=== PATIENT | female | born 1955 | race Caucasian/White ===

== ENCOUNTER 2017-03-04 08:43 | Observation (INO) ==
[2017-03-04 09:20] LABS: Basophils % 0.1 %; Eosinophils % 0.1 %; Hematocrit 36.4 % (35.3-44.9); Hemoglobin 12.2 g/dL (11.5-15.4); Immature Granulocytes % 0.9 % (0-4); Lymphocytes # 0.6 K/mcL (0.6-4.6); Lymphocytes % 6.7 %; Mean Corpuscular HGB Conc 33.5 g/dL (31.6-35.5); Mean Corpuscular Hemoglobin 32.1 pg (28.0-33.3); Mean Corpuscular Volume 95.8 fL (83.0-100.0); Mean Platelet Volume 10.4 fL (9.4-12.4); Monocytes # 0.3 K/mcL (0.0-1.3); Monocytes % 3.2 %; Neutrophils # 7.3 K/mcL (1.6-8.9); Platelet Count 152 K/mcL (140-400); Red Cell Distribution Width 14.8 % (11.5-14.5)
[2017-03-04 09:26] LABS: INR 1.1
[2017-03-04 09:28] LABS: Activated Partial Thrombo Time 24.4 Seconds (26.0-36.0)
[2017-03-04 09:38] LABS: Albumin 3.3 g/dL (3.5-5.0); Albumin/Globulin Ratio 0.9 (1.1-2.2); Bilirubin,Total 0.9 mg/dL (0.2-1.2); Calcium 8.7 mg/dL (8.6-10.8); Globulin 3.7 g/dL (2.4-3.5); Potassium 3.9 mEq/L (3.5-4.5)
[2017-03-04 09:48] LABS: Bilirubin,Urine Small (Negative); Blood,Urine Negative (Negative); Clarity,Urine Clear (Clear); Color,Urine Yellow (Yellow); Glucose,Urine (UA) Normal (Normal); Ketones,Urine Negative (Negative); Leukocyte Esterase,Urine Negative (Negative); Nitrite,Urine Negative (Negative); Protein,Urine 30 mg/dL (Neg-Trace); Specific Gravity,Urine >= 1.030 (1.010-1.025); Urobilinogen,Urine Normal (Normal)
[2017-03-04 09:57] LABS: Squamous Epithelial Cell,Urine Many per lpf (None-Few)
[2017-03-04 09:59] LABS: Bacteria,Urine Few per hpf (None-Few); RBC,Urine 0-3 per hpf (0-3)
[2017-03-04 10:02] LABS: Amorphous Sediment,Urine Moderate (Few)
--- NOTE | 2017-03-04 10:09 | Emergency Department Note ---
Disposition Clinical Impression: Confusion, Fever, UTI (urinary tract infection), Hypotension Disposition: Admitted As Inpatient Condition: Fair Time of Disposition: 10:58 ([facility]) Fall HPI - General Chief Complaint: ED Fall Stated Complaint: confusion/fall Time Seen by Provider: 03/04/17 08:50 Source: patient, EMS Mode of arrival: EMS Limitations: altered mental status Nursing Notes Reviewed: Yes Vital Signs Reviewed: Yes - History of Present Illness HPI Narrative: [id number] female with history of aneurysm clipping 2 about 3 years ago presents to the emergency room after having gone to the bathroom ambulating fell struck and hit her knees causing skin tears tells me she is currently being treated for urinary tract infection he states that he cannot understand why she fell he said she was good yesterday until about 4:00, and also and she began getting weak he said she has had 3 doses of the antibiotic he denies that she has had any chest pain chest pressure palpitations any cough hemoptysis or sputum production or any additional complaints patient concurs with history but patient is also a moderate historian Pt Subjective Complaint: fall 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 From: standing Fall Witnessed: yes Place Fall Occurred: home Loss of Consciousness: none Prolonged Down Time?: no Symptoms Prior to Fall: other (unknown) Context: tripped/slipped Location of injury - extremities: Bilateral: knee (left abrasion) Severity: mild Severity scale (1-10): 3 Quality: aching Associated symptoms (after fall): Reports: weakness, other (knee pain) - Related Data Home Medications Medication Instructions Recorded Confirmed Aspirin [Lo-Dose Aspirin EC] 81 mg PO DAILY 08/14/16 03/04/17 amLODIPine [Norvasc] 5 mg PO DAILY 08/14/16 03/04/17 Previous Rx's Medication Instructions Recorded Escitalopram [Lexapro] 10 mg PO DAILY #30 tablet 08/18/16 Sulfamethoxazole/Trimeth DS 1 each PO BID #20 tablet 03/02/17 [Bactrim DS] Allergies Allergy/AdvReac Type Severity Reaction Status Date / Time No Known Allergies Allergy Verified 03/04/17 09:00 All systems ED: reviewed and negative except as stated. Constitutional: Reports: weakness. Denies: fever, chills Eyes: Denies: eye pain, eye discharge ENT ED: Denies: ear pain Cardiovascular: Denies: chest pain, palpitations Respiratory: Denies: cough, dyspnea, wheezes Gastrointestinal: Denies: abdominal pain, nausea, vomiting Genitourinary: Reports: dysuria. 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: no LAW OFFICE RECEPTIONIST history - Social History Smoking Status: Never smoker Alcohol use: Reports: none Drug use: Reports: none Physical Exam - General Limitations: altered mental status (slow to answer at times but at base ine per family) General appearance: alert, in no apparent distress - Head Head exam: atraumatic, normocephalic, normal inspection - Eye Eye exam: Present: normal appearance, PERRL, EOMI - ENT ENT exam: normal exam, normal oropharynx, mucous membranes moist - Neck Neck exam: Present: normal inspection, full ROM, trachea midline - Chest Chest inspection: Present: normal inspection, symmetric chest wall rise - Respiratory Respiratory exam: Present: normal lung sounds bilaterally - Cardiovascular Cardiovascular exam: Present: regular rate, normal rhythm, normal heart sounds - Abdominal Exam Abdominal exam: Present: soft, Non-Tender, normal bowel sounds. Absent: tenderness, distention, guarding, rebound, rigidity, mass, pulsatile mass - Expanded Upper Extremity Exam Shoulder exam: Present: normal inspection, full ROM Arm exam: Present: normal inspection, full ROM Elbow exam: Present: normal inspection, full ROM Forearm/Wrist exam: Present: normal inspection, full ROM Hand exam: Present: normal inspection, full ROM Vascular exam: Normal: capillary refill, radial pulse - Expanded Lower Extremity Exam Hip/Pelvis exam: Present: normal inspection, full ROM Upper leg exam: Present: normal inspection, full ROM Knee exam: Present: normal inspection, full ROM, tenderness, swelling, abrasion (Urgent abrasion on the right knee consistent with mild skin tear small bruising and ecchymosis noted on the left knee soft tissue swelling noted bilaterally about the patellar region) Lower leg exam: Present: normal inspection, full ROM Ankle exam: Present: normal inspection, full ROM Foot/toe exam: Present: normal inspection, full ROM Neurovascular/Tendon exam: Present: normal capillary refill, normal fine/light touch. Absent: motor deficit, sensory deficit, tendon deficit Gait: not tested/not observed - Back Exam Back exam: Present: normal inspection, full ROM. Absent: muscle spasm - Neurological Exam Neurological exam: Present: alert, CN II-XII intact - Psychiatric Psychiatric exam: Present: normal affect, normal mood - Skin Skin exam: Present: warm, dry, intact, normal color Course Course Narrative: Patient was seen and examined patient was immediately taken to radiology CAT scans performed and also laboratory data was done even though the patient just been here the other day repeat labs were done to make sure that there had been no significant change with the potentially even including that of an infection etiology entering into the blood stream which could be a potential for sepsis had a little bit hypotension but did respond well when given fluids which may be the underlying etiology considering the fact that the patient went for a walk for about a mile a day before as result the patient will be admitted for observation transfer to [facility] service and Dr. Sepulveda patient family are agreeable Vital Signs O2 Sat by Pulse Oximetry 91 03/04/17 08:44 Temperature 100.4 F H 03/04/17 10:47 Pulse Rate 84 03/04/17 10:47 Respiratory Rate 18 03/04/17 10:47 Blood Pressure 83/44 03/04/17 10:47 O2 Sat by Pulse Oximetry 96 03/04/17 10:47 Oxygen Delivery Oxygen Delivery Nasal Cannula Fall - MDM Narrative Medical decision making narrative: FaAll hypotension metabolic infection - Differential Diagnosis Likely: syncope - Lab Data Lab results reviewed: Yes I reviewed the patient's lab results. Result diagrams: 03/04/17 09:13 03/04/17 09:13 Lab Results 03/04/17 03/04/17 03/04/17 Range/Units 09:13 09:13 09:13 WBC 8.2 (4.3-11.1) K/mcL RBC 3.80 L (3.82-4.97) M/mcL Hgb 12.2 (11.5-15.4) g/dL Hct 36.4 (35.3-44.9) % MCV 95.8 (83.0-100.0) fL MCH 32.1 (28.0-33.3) pg MCHC 33.5 (31.6-35.5) g/dL RDW 14.8 H (11.5-14.5) % Plt Count 152 (140-400) K/mcL MPV 10.4 (9.4-12.4) fL Immature Gran % 0.9 (0-4) % Seg Neutrophils % 89.0 % Lymphocytes % 6.7 % Monocytes % 3.2 % Eosinophils % 0.1 % Basophils % 0.1 % Neutrophils # 7.3 (1.6-8.9) K/mcL Lymphocytes # 0.6 (0.6-4.6) K/mcL Monocytes # 0.3 (0.0-1.3) K/mcL Eosinophils # 0.0 (0.0-0.6) K/mcL Basophils # 0.0 (0.0-0.2) K/mcL PT 12.0 (9.4-12.1) Seconds INR 1.1 APTT 24.4 L (26.0-36.0) Seconds VBG Lactic Acid (0.5-2.2) mmol/L Sodium 138 (136-145) mEq/L Potassium 3.9 (3.5-4.5) mEq/L Chloride 108 (98-109) mEq/L Carbon Dioxide 20 (19-29) mEq/L BUN 21 H (7-20) mg/dL Creatinine 1.37 H D (0.57-1.11) mg/dL Est GFR ( Amer) 47 L (> 60) Est GFR (Non-Af Amer) 39 L (> 60) BUN/Creatinine Ratio 15 (6-26) Glucose 140 H (70-99) mg/dL Calculated Osmolality 291 (280-300) Calcium 8.7 (8.6-10.8) mg/dL Total Bilirubin 0.9 (0.2-1.2) mg/dL AST 24 (5-34) Units/L ALT 15 (0-55) Units/L Alkaline Phosphatase 44 (38-126) Units/L Serum Total Protein 7.0 (6.0-8.3) g/dL Albumin 3.3 L (3.5-5.0) g/dL Globulin 3.7 H (2.4-3.5) g/dL Albumin/Globulin Ratio 0.9 L (1.1-2.2) Urine Color (Yellow) Urine Clarity (Clear) Urine pH (5.0-8.0) pH Units Ur Specific [place] (1.010-1.025) Urine Protein (Neg-Trace) mg/dL Urine Glucose (UA) (Normal) mg/dL Urine Ketones (Negative) mg/dL Urine Blood (Negative) Urine Nitrite (Negative) Urine Bilirubin (Negative) Urine Urobilinogen (Normal) mg/dL Ur Leukocyte Esterase (Negative) Urine Microscopic RBC (0-3) per hpf Urine Microscopic WBC (0-3) per hpf Ur Squamous Epith Cells (None-Few) per lpf Amorphous Sediment (Few) Urine Bacteria (None-Few) per hpf Ur Culture Indicated? (NO) 03/04/17 03/04/17 Range/Units 09:38 11:20 WBC (4.3-11.1) K/mcL RBC (3.82-4.97) M/mcL Hgb (11.5-15.4) g/dL Hct (35.3-44.9) % MCV (83.0-100.0) fL MCH (28.0-33.3) pg MCHC (31.6-35.5) g/dL RDW (11.5-14.5) % Plt Count (140-400) K/mcL MPV (9.4-12.4) fL Immature Gran % (0-4) % Seg Neutrophils % % Lymphocytes % % Monocytes % % Eosinophils % % Basophils % % Neutrophils # (1.6-8.9) K/mcL Lymphocytes # (0.6-4.6) K/mcL Monocytes # (0.0-1.3) K/mcL Eosinophils # (0.0-0.6) K/mcL Basophils # (0.0-0.2) K/mcL PT (9.4-12.1) Seconds INR APTT (26.0-36.0) Seconds VBG Lactic Acid 1.4 (0.5-2.2) mmol/L Sodium (136-145) mEq/L Potassium (3.5-4.5) mEq/L Chloride (98-109) mEq/L Carbon Dioxide (19-29) mEq/L BUN (7-20) mg/dL Creatinine (0.57-1.11) mg/dL Est GFR ( Amer) (> 60) Est GFR (Non-Af Amer) (> 60) BUN/Creatinine Ratio (6-26) Glucose (70-99) mg/dL Calculated Osmolality (280-300) Calcium (8.6-10.8) mg/dL Total Bilirubin (0.2-1.2) mg/dL AST (5-34) Units/L ALT (0-55) Units/L Alkaline Phosphatase (38-126) Units/L Serum Total Protein (6.0-8.3) g/dL Albumin (3.5-5.0) g/dL Globulin (2.4-3.5) g/dL Albumin/Globulin Ratio (1.1-2.2) Urine Color Yellow (Yellow) Urine Clarity Clear (Clear) Urine pH 6.0 (5.0-8.0) pH Units Ur Specific [place] >= 1.030 H (1.010-1.025) Urine Protein 30 H (Neg-Trace) mg/dL Urine Glucose (UA) Normal (Normal) mg/dL Urine Ketones Negative (Negative) mg/dL Urine Blood Negative (Negative) Urine Nitrite Negative (Negative) Urine Bilirubin Small H (Negative) Urine Urobilinogen Normal (Normal) mg/dL Ur Leukocyte Esterase Negative (Negative) Urine Microscopic RBC 0-3 (0-3) per hpf Urine Microscopic WBC 3-5 H (0-3) per hpf Ur Squamous Epith Cells Many H (None-Few) per lpf Amorphous Sediment Moderate H (Few) Urine Bacteria Few (None-Few) per hpf Ur Culture Indicated? NO (NO) - Radiology Data Radiology results reviewed: Yes I reviewed the patient's radiology results. ITS Impressions Head CT 03/04/17 09:00 IMPRESSION: 1. Stable appearance of the brain without acute intracranial process identified. 2. Sequelae of coil embolization of two intracranial aneurysms. D/ / Jose R Zaragoza MD / Jose R Zaragoza MD Interpreting Provider: Jose R Zaragoza MD Knee X-Ray 03/04/17 09:00 IMPRESSION: No acute abnormalities. Degenerative changes to the knee. D/ / 03/04/2017 10:04:24 Jose Roberto Mary MD / Ester Segura Interpreting Provider: Jose Roberto Mary MD Knee X-Ray 03/04/17 09:00 IMPRESSION: 1. No acute fracture or dislocation of the right knee. 2. Likely subcutaneous contusion about the anterolateral right knee. 3. 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 D/ / Gelacio Barrientos MD / Gelacio Barrientos MD Interpreting Provider: Gelacio Barrientos MD - EKG Data EKG attestation: Yes I reviewed and interpreted this EKG. EKG results narrative: Sinus rhythm rate 83 MA 174 QRS 89 QT 343 excess -6 Critical Care Time Critical Care Time: No
[2017-03-04] MEDS ORDERED: 0.9 % Sodium Chloride 500 ML IVC ONE (10:39)
[2017-03-04] MEDS ORDERED: 0.9 % Sodium Chloride 1,000 ML IVC SCH ×2 (10:45→11:39)
[2017-03-04] MEDS ORDERED: Naloxone 0.4 MG/ML INJ IVP PRN (11:39)
[2017-03-04] MEDS ORDERED: Ondansetron 4 MG/2 ML VIAL IVP PRN (11:39)
--- NOTE | 2017-03-04 15:45 | Electrocardiograph Report ---
[address] [address] Test Date: 2017-03-04 Pat Name: Geri Anthony Department: 9201 Room: [facility] Gender: F Emergency Department Clinician: [id number] : 1955 Requested By: Nadira Lanier Order Number: [id number] Reading MD: Roberth Guerrero MD Measurements Intervals [place] Rate: 83 P: 55 DC: 174 QRS: -6 QRSD: 89 T: 43 QT: 343 QTc: 383 Interpretive Statements SINUS RHYTHM Electronically Signed On 03-04-2017 15:43:42 EDT by Roberth Guerrero MD
--- NOTE | 2017-03-04 17:08 | Internal Med History&Physical ---
Date of Encounter: 03/04/17 Time of Encounter: 16:30 Assessment and Plan (1) UTI (urinary tract infection) Current visit: Yes Status: Acute She was given Rocephin in the emergency room. We will recheck CBC in a.m. Urine culture from March 02 showed no pathogens. Qualifiers: Urinary tract infection type: site unspecified Hematuria presence: without hematuria Qualified Code(s): N39.0 - Urinary tract infection, site not specified (2) Azotemia Current visit: Yes Status: Acute Creatinine was normal at 0.82 on 03/02/2017. We will give IV fluids and recheck labs in a.m. Internal Medicine - H&P: HPI Chief complaint: Weakness Admitted From: Home Plans for Post Hospital Care: Home History of present illness: Ms. Anthony is a 61 year old female who came to emergency room after she became weak in her bathroom and began to fall. She was caught by her and there was no significant injury sustained. He was unable to get her to return standing on her feet. She was brought to the emergency room and found to have mild azotemia and left shift on WBC differential. She was admitted to [facility] floor for ongoing care needs. She has no complaints at present time. She denies any injury and states she wishes to be discharged home. She was seen in emergency room March 02 and given Septra DS for diagnoses of UTI. 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 She has residual impaired short-term memory loss. She had coils placed in 2 additional aneurysms and follows regularly with [facility] physicians to monitor her status. She denies seizures or other neurologic diagnoses. Past Med Surg Social Fam HX - Past Medical History Medical history: hypertension, other (intercranial aneursym with coil clippings x2) Psychiatric history: anxiety, depression - Past Surgical History Surgical History: colectomy, vascular surgery (aneurysm clipping 2012) - Social History Smoking Status: Never smoker Smokeless Tobacco Status: No Alcohol use: none Drug use: none - Family History Mother Hx Family Cardiac Disorders: No Hx Family Respiratory Disorders: Yes Hx Family Cancer: Yes Hx Family GI Disorders: No Hx Family Endocrine Disorder: No Hx Family Neuromuscular Disorders: No Hx Family Neurologic Disorders: No Hx Family HEENT Disorders: No Hx Family Autoimmune Disorders: No Father Hx Family Cardiac Disorders: No Hx Family Respiratory Disorders: No Hx Family Cancer: Yes ("penis") Hx Family GI Disorders: No Hx Family Endocrine Disorder: No Hx Family Neuromuscular Disorders: No Hx Family Neurologic Disorders: No Hx Family HEENT Disorders: No Hx Family Autoimmune Disorders: No Internal Medicine - H&P: Meds Aspirin [Lo-Dose Aspirin EC] 81 mg PO DAILY 08/14/16 [History] amLODIPine [Norvasc] 5 mg PO DAILY 08/14/16 [History] Escitalopram [Lexapro] 10 mg PO DAILY #30 tablet 08/18/16 [Rx] Sulfamethoxazole/Trimeth DS [Bactrim DS] 1 each PO BID #20 tablet 03/02/17 [Rx] Allergies No Known Allergies Allergy (Verified 03/04/17 09:00) All Systems PM: A 10-system review of systems was performed and is negative for pertinent findings except as documented above in the HPI. Review of systems: Review of systems is obtained primarily from patient's who was in the room Gen.: He states her weight is increased approximately 15 pounds in the past year Cardiovascular: There is no history of hypertension ND heart failure angina DVT or pulmonary embolus. She was prescribed amlodipine by the neurosurgeons because of cerebral aneurysms Respiratory: She smoked from age [age] up to 1 pack per day. She does not have documented chronic lung disease and does not use home oxygen GI: She has had cholecystectomy. She denies disorders of her liver or exceeding pancreas : She has had UTI several years ago. She denies chronic kidney disease other kidney or bladder disorders. She has had bladder suspension surgery and hysterectomy. Neurologic: As per history of present illness Endocrine: She has no known diabetes thyroid disease or hyperlipidemia Hematology/oncology: No history of blood disorders cancers or anemia Psychiatric: She has depression but no significant anxiety or other mental health issues Musk skeletal: She has DJD but no known gout or other bone joint or muscle disorders. - Constitutional Vitals: Temp Pulse Resp BP Pulse Ox 98.5 F 70 18 129/65 98 03/04/17 15:09 03/04/17 15:09 03/04/17 15:09 03/04/17 15:09 03/04/17 15:09 Exam: Gen.: She is a well-developed well-nourished female who appears in no severe distress at present time. HEENT: Head is atraumatic and normocephalic except for mild abrasion on her nose from a fall a few days ago. Eyes: EOMI. There is no scleral icterus. Mouth: Mucosa slightly dry Neck: Supple and nontender. There is no thyromegaly or adenopathy noted. She has a well-healed tracheostomy scar at the base of her neck anteriorly Heart: Regular without murmurs gallops or ectopics Lungs: No wheezes or crackles are heard. Abdomen: Soft and nontender. No masses or guarding are noted. Extremities: There is no cyanosis edema or clubbing noted. Dorsalis pedis and posttibial pulses are trace palpable bilaterally. Neurologic: Mental status: She is talkative and a good historian. Cranial nerves: Smile is symmetric. Forehead wrinkles bilaterally. Tongue protrudes midline. EOMI. Motor: There is no pronator drift. She cannot fully pronate the left arm because of pain in her left shoulder. Cerebellar: Finger to nose is intact bilaterally. Skin: Warm and dry Internal Med - H&P Results - Labs CBC & Chem 7: 03/04/17 09:13 03/04/17 09:13
[2017-03-04] MEDS: 0.45 % Sodium Chloride w/KCl 20 MEQ/1,000 ML MLS IVC SCH (18:23)
[2017-03-05] MEDS ORDERED: *HR* LORazepam 2 MG/ML VIAL IVP ONE (02:50)
[2017-03-05] MEDS: 0.45 % Sodium Chloride w/KCl 20 MEQ/1,000 ML MLS IVC SCH (04:57)
[2017-03-05 06:11] LABS: Basophils % 0.2 %; Eosinophils % 0.3 %; Hematocrit 31.3 % (35.3-44.9); Hemoglobin 10.3 g/dL (11.5-15.4); Immature Granulocytes % 0.7 % (0-4); Lymphocytes # 0.8 K/mcL (0.6-4.6); Lymphocytes % 14.1 %; Mean Corpuscular HGB Conc 32.9 g/dL (31.6-35.5); Mean Corpuscular Hemoglobin 32.1 pg (28.0-33.3); Mean Corpuscular Volume 97.5 fL (83.0-100.0); Mean Platelet Volume 10.9 fL (9.4-12.4); Monocytes # 0.2 K/mcL (0.0-1.3); Monocytes % 4.1 %; Neutrophils # 4.8 K/mcL (1.6-8.9); Platelet Count 110 K/mcL (140-400); Red Blood Count 3.21 M/mcL (3.82-4.97); Segmented Neutrophils % 80.6 %
[2017-03-05 06:36] LABS: BUN/Creatinine Ratio 18 (6-26); Blood Urea Nitrogen 17 mg/dL (7-20); Calcium 7.8 mg/dL (8.6-10.8); Carbon Dioxide 21 mEq/L (19-29); Chloride 106 mEq/L (98-109); Glucose 107 mg/dL (70-99); Osmolality,Calculated 282 (280-300); Potassium 3.6 mEq/L (3.5-4.5); Sodium 135 mEq/L (136-145); eGFR For African Americans > 60 (> 60); eGFR For Non-African Americans > 60 (> 60)
[2017-03-05] MEDS ORDERED: amLODIPine 5 MG TABLET PO SCH (09:00)
[2017-03-05] MEDS ORDERED: Aspirin Enteric Coated 81 MG Tablet PO SCH (09:00)
[2017-03-05 09:09] VITALS: BP 109/70
--- NOTE | 2017-03-05 10:16 | Discharge Summary ---
Date of Encounter: 03/05/17 Time of Encounter: 10:00 - Discharge Diagnosis (1) UTI (urinary tract infection) Priority: Primary Status: Resolved Qualifiers: Urinary tract infection type: site unspecified Hematuria presence: without hematuria Qualified Code(s): N39.0 - Urinary tract infection, site not specified (2) Azotemia Priority: Secondary Status: Resolved - Discharge Medications Home Medications: Aspirin [Lo-Dose Aspirin EC] 81 mg PO DAILY 08/14/16 [History] Escitalopram [Lexapro] 10 mg PO DAILY #30 tablet 08/18/16 [Rx] amLODIPine [Norvasc] 5 mg PO HS #0 03/05/17 [Rx] Allergies/Adverse Reactions: Allergies No Known Allergies Allergy (Verified 03/04/17 09:00) Date of admission: 03/04/17 11:32 Primary care physician: Ruslan Walker MD Consults: 03/04/17 17:12 Consult to Auto Glass Worker [CONS] Routine Reason for SW Consult: spouse interested in HH if able - Patient Status Disposition: Home, Self-Care Condition: Fair Functional capacity at discharge: uses cane/walker Overall status at discharge: patient is progressing back to baseline - Discharge Instructions Follow Up With: Ruslan Walker MD [Primary Care Provider] - - Diet and Activity Activity: resume usual activities as tolerated Diet: advance to your usual diet Hospital course: Ms. Anthony is a 61 year old female who came to emergency room after she became weak in her bathroom and began to fall. She was caught by her and there was no significant injury sustained. He was unable to get her to return standing on her feet. She was brought to the emergency room and found to have mild azotemia and left shift on WBC differential. She was admitted to [facility] floor for ongoing care needs. Initial orders were written by the emergency room physician. I saw her on March 04 and performed the history and physical. She had no further syncopal or near syncopal episodes during hospitalization. She was given IV fluids and azotemia resolved with BUN and creatinine being 17 and 0.94 respectively on the day of discharge with estimated GFR greater than 60. WBC remained normal at 5.9 on the day of discharge with 80.6% segs. She felt improved when I saw her on March 05. I note her hemoglobin had decreased to 10.2 with hydration. I will let her PCP follow-up on this. I suggested she take amlodipine at bedtime to avoid daytime orthostatic hypotension symptoms. She had frequent episodes of loose stools during hospitalization. Stool was negative for C. difficile but positive for lactoferrin. I told her and her she might have viral gastroenteritis and her PCP can follow up on this. Urine culture from the emergency room visit March 02 showed no growth. She will discontinue Septra that was prescribed at the ER visit. On March 05 she was stable for discharge home. She will follow with her PCP Dr. Walker within 1 week. - Time Spent with Patient Total time spent providing and/or coordinating discharge services: - Constitutional Vitals: Temp Pulse Resp BP Pulse Ox 98.6 F 86 22 109/70 94 03/05/17 08:48 03/05/17 08:48 03/05/17 08:48 03/05/17 08:48 03/05/17 08:48
== END 2017-03-05 11:28 | disposition home or self-care (01) ==
LOC: EMEROOPIK 08:43 → INPPIK 08:43
PROVIDERS: ADMIT Internal Medicine; ATTEND Internal Medicine

== ENCOUNTER 2021-08-21 09:15 | Observation (INO) ==
[2021-08-21] MEDS ORDERED: Ondansetron 4 MG/2 ML VIAL IVP ONE (09:38)
[2021-08-21] MEDS ORDERED: 0.9 % Sodium Chloride 1,000 ML IVC ONE (09:38)
[2021-08-21 10:04] LABS: Basophils % 0.1 %; Eosinophils % 0.1 %; Hematocrit 35.8 % (35.3-44.9); Hemoglobin 11.7 g/dL (11.5-15.4); Immature Granulocytes % 0.7 % (0-4); Lymphocytes # 0.2 K/mcL (0.6-4.6); Lymphocytes % 3.3 %; Mean Corpuscular HGB Conc 32.7 g/dL (31.6-35.5); Mean Corpuscular Hemoglobin 32.5 pg (28.0-33.3); Mean Corpuscular Volume 99.4 fL (83.0-100.0); Mean Platelet Volume 11.6 fL (9.4-12.4); Monocytes # 0.2 K/mcL (0.0-1.3); Monocytes % 3.2 %; Neutrophils # 6.8 K/mcL (1.6-8.9); Platelet Count 127 K/mcL (140-400); Red Cell Distribution Width 14.2 % (11.5-14.5); Segmented Neutrophils % 92.6 %; White Blood Count 7.3 K/mcL (4.3-11.1)
[2021-08-21 10:21] LABS: Calcium 8.5 mg/dL (8.6-10.3); Potassium 3.4 mEq/L (3.5-5.1)
[2021-08-21 10:50] LABS: Platelet Estimate Slight Decrease (Normal)
[2021-08-21] MEDS ORDERED: Naloxone 0.4 MG/ML INJ IVP PRN (10:50)
[2021-08-21] MEDS ORDERED: Ondansetron 4 MG/2 ML VIAL IVP PRN (11:02)
[2021-08-21] MEDS ORDERED: Acetaminophen 325 MG TABLET PO PRN (11:02)
[2021-08-21] MEDS: 0.9 % Sodium Chloride 1,000 ML IVC SCH (15:25)
[2021-08-21] MEDS: amLODIPine 5 MG TABLET PO SCH ×2 (20:17)
[2021-08-21] MEDS ORDERED: Sulfamethoxazole/Trimeth DS 1 EACH TABLET PO SCH (21:00)
[2021-08-22] MEDS: 0.9 % Sodium Chloride 1,000 ML IVC SCH (04:36)
[2021-08-22 07:18] LABS: Basophils % 0.2 %; Eosinophils % 0.6 %; Hemoglobin 10.7 g/dL (11.5-15.4); Immature Granulocytes % 0.2 % (0-4); Lymphocytes # 0.3 K/mcL (0.6-4.6); Lymphocytes % 7.1 %; Mean Corpuscular HGB Conc 32.4 g/dL (31.6-35.5); Mean Corpuscular Hemoglobin 31.9 pg (28.0-33.3); Mean Corpuscular Volume 98.5 fL (83.0-100.0); Monocytes # 0.3 K/mcL (0.0-1.3); Monocytes % 5.6 %; Platelet Count 114 K/mcL (140-400); Red Blood Count 3.35 M/mcL (3.82-4.97); Red Cell Distribution Width 14.3 % (11.5-14.5); Segmented Neutrophils % 86.3 %; White Blood Count 4.6 K/mcL (4.3-11.1)
[2021-08-22 09:08] LABS: Blood Urea Nitrogen 17 mg/dL (8-23); Carbon Dioxide 24 mEq/L (23-29); Chloride 106 mEq/L (98-107); Potassium 3.6 mEq/L (3.5-5.1); Sodium 136 mEq/L (136-145)
[2021-08-22 09:09] LABS: BUN/Creatinine Ratio 23 (6-26); Calcium 7.7 mg/dL (8.6-10.3); Glucose 88 mg/dL (70-105); Magnesium 1.8 mg/dL (1.6-2.6); Osmolality,Calculated 283 (280-300); eGFR For African Americans > 60 (> 60); eGFR For Non-African Americans > 60 (> 60)
[2021-08-22 09:23] LABS: Platelet Estimate Slight Decrease (Normal)
[2021-08-22] MEDS: cefTRIAXone 2,000 MG in 0.9 % Sodium Chloride Mini Bag 100 ML IVPB SCH (11:01)
[2021-08-22] MEDS: Aspirin Enteric Coated 81 MG Tablet PO SCH (11:01)
[2021-08-22] MEDS: *HR* Heparin 5,000 UNIT/ML VIAL SQ SCH (17:39)
[2021-08-22] MEDS: amLODIPine 5 MG TABLET PO SCH (20:28)
[2021-08-23] MEDS: *HR* Heparin 5,000 UNIT/ML VIAL SQ SCH (05:25)
[2021-08-23] MEDS: Aspirin Enteric Coated 81 MG Tablet PO SCH (07:22)
[2021-08-23 07:47] VITALS: BP 131/76; PULSE 78; RESP 20; TEMP 97.8; O2SAT 93
[2021-08-23 08:35] LABS: Basophils % 0.3 %; Eosinophils # 0.1 K/mcL (0.0-0.6); Eosinophils % 1.7 %; Hematocrit 34.7 % (35.3-44.9); Hemoglobin 11.2 g/dL (11.5-15.4); Immature Granulocytes % 0.3 % (0-4); Lymphocytes # 0.6 K/mcL (0.6-4.6); Lymphocytes % 16.2 %; Mean Corpuscular HGB Conc 32.3 g/dL (31.6-35.5); Mean Corpuscular Hemoglobin 31.5 pg (28.0-33.3); Mean Corpuscular Volume 97.7 fL (83.0-100.0); Mean Platelet Volume 11.3 fL (9.4-12.4); Monocytes # 0.4 K/mcL (0.0-1.3); Monocytes % 12.1 %; Neutrophils # 2.4 K/mcL (1.6-8.9); Platelet Count 131 K/mcL (140-400); Red Blood Count 3.55 M/mcL (3.82-4.97); Red Cell Distribution Width 13.7 % (11.5-14.5); Segmented Neutrophils % 69.4 %; White Blood Count 3.5 K/mcL (4.3-11.1)
[2021-08-23 09:05] LABS: BUN/Creatinine Ratio 20 (6-26); Blood Urea Nitrogen 13 mg/dL (8-23); Calcium 8.3 mg/dL (8.6-10.3); Carbon Dioxide 25 mEq/L (23-29); Chloride 105 mEq/L (98-107); Glucose 113 mg/dL (70-105); Osmolality,Calculated 291 (280-300); Potassium 3.1 mEq/L (3.5-5.1); Sodium 140 mEq/L (136-145); eGFR For African Americans > 60 (> 60); eGFR For Non-African Americans > 60 (> 60)
[2021-08-23 09:40] LABS: Platelet Estimate Normal (Normal)
[2021-08-23] MEDS: cefTRIAXone 2,000 MG in 0.9 % Sodium Chloride Mini Bag 100 ML IVPB SCH (11:15)
== END 2021-08-23 11:55 | disposition home health service (06) ==
LOC: INPPIK 09:15 → EMEROOPIK 09:15 → INPPIK 12:59
PROVIDERS: ADMIT Internal Medicine; ATTEND Internal Medicine